=== PATIENT | male | born 1970 | race Hispanic/Latino ===

== ENCOUNTER → 2019-02-15 | Outpatient (CLI) | payer OTHER ==
--- NOTE | 2019-02-15 09:48 | REP ---
Clinical: Groin pain. Technique: Axial noncontrast images from the lung bases to the pubic symphysis with coronal and sagittal re-formations. No prior examination is available for comparison. Findings: Lung bases are clear. Visualized heart and pericardium normal. Mild hepatomegaly and hepatosteatosis noted. Spleen, pancreas, gallbladder, bilateral adrenal glands and left kidney normal. Right kidney includes 1 mm and 2 mm nonobstructing calculi. Evaluation of the enteric system is unremarkable and without obstruction or acute inflammatory process. Few scattered sigmoid diverticula noted without acute diverticulitis. Evaluation of the pelvis demonstrates normal bladder and age appropriate prostate/seminal vesicles. There is evidence for prior right inguinal hernia repair without acute stranding or definite residual hernia. There is a small/moderate left inguinal hernia which contains mesenteric fat and stranding suggesting the possibility of acute inflammatory change and consistent with the patient's given symptoms. No ascites. No adenopathy. No free air. Abdominal aorta without aneurysm. Musculoskeletal structures demonstrate stable degenerative changes. Impression: 1. Small/moderate fat containing left inguinal hernia containing fat stranding suggesting the possibility of acute inflammatory change and consistent with the patient's given symptoms. Electronically Signed by Eh Dior MD 02/15/2019 09:39 A
== END ==
LOC: M RAD 09:01
PROVIDERS: ATTEND Physician Assistant Medical
DX: K40.90 Unilateral inguinal hernia, without obstruction or gangrene, not specified as recurrent (principal)

== ENCOUNTER → 2019-12-13 | Outpatient (CLI) | payer OTHER ==
--- NOTE | 2019-12-21 07:59 | REP ---
SCROTAL SONOGRAPHY HISTORY: Left testicular pain. COMPARISON STUDY: None. FINDINGS: High resolution bilateral scrotal sonography shows no evidence of intratesticular mass lesion on either side. Right testis measures 4.9 x 2.5 x 2.9 cm. Left testis measures 4.4 x 2.4 x 3.0 cm. Testicular Doppler flow is present bilaterally and felt to be normal. Resistive indices are 0.51 on the right and 0.54 on the left by Doppler. There is a 2.3 cm cyst in the head of the epididymis on the left and a 0.7 cm cyst is seen in the epididymis on the right. There is a left-sided varicocele noted particularly with Valsalva. No significant hydrocele. No evidence of hernia. IMPRESSION: Small left-sided varicocele visible with Valsalva. Bilateral epididymal cysts, largest on the left 2.3 cm. Otherwise negative scrotal sonography. MTDD
== END ==
LOC: M RAD 07:22
PROVIDERS: ATTEND Physician Assistant Medical
DX: N50.812 Left testicular pain (principal); N50.3 Cyst of epididymis; I86.1 Scrotal varices

== ENCOUNTER → 2021-04-30 | Outpatient (CLI) | payer OTHER | LOC: M RAD 07:05 | PROVIDERS: ATTEND Nurse Practitioner Primary Care | DX: K76.0 Fatty (change of) liver, not elsewhere classified (principal) ==

== ENCOUNTER → 2022-05-02 | Outpatient (REF) | payer OTHER ==
[2022-05-02 11:49] LABS: BASO % 0.5 % (0.0-1.0); EOS # 0.2 10^3/uL (0.0-0.5); EOS % 2.3 % (0.0-3.0); HEMOGLOBIN 14.7 g/dl (13.5-17.5); LYMPH # 2.6 10^3/uL (1.5-5.0); LYMPH % 30.1 % (24.0-44.0); MEAN CORPUSCULAR HGB CONC 33.4 g/dl (32.0-36.5); MEAN CORPUSCULAR VOLUME 89.8 fl (80.0-96.0); MONO # 0.6 10^3/uL (0.0-0.8); MONO % 7.2 % (2.0-8.0); NEUTROPHILS # 5.2 10^3/uL (1.5-8.5); NEUTROPHILS % 59.4 % (36.0-66.0); PLATELET COUNT, AUTOMATED 195 10^3/uL (150-450); WHITE BLOOD COUNT 8.8 10^3/uL (4.0-10.0)
[2022-05-02 12:09] LABS: HEMOGLOBIN A1c 7.8 % (4.0-6.0)
[2022-05-02 12:16] LABS: CREATININE, URINE 183.9 MG/DL
[2022-05-02 12:19] LABS: ALBUMIN 3.8 G/DL (3.2-5.2); ALKALINE PHOSPHATASE 131 U/L (46-116); ALT/SGPT 55 U/L (7.0-40); AST/SGOT 27 U/L (<34); BILIRUBIN,TOTAL 0.4 MG/DL (0.3-1.2); BLOOD UREA NITROGEN 21 MG/DL (9-23); CALCIUM LEVEL 8.6 MG/DL (8.5-10.1); CARBON DIOXIDE LEVEL 29 MMOL/L (20-31); CHLORIDE LEVEL 106 MMOL/L (98-107); CHOLESTEROL LEVEL 155 MG/DL (<200); CHOLESTEROL RISK RATIO 5.03 (<5); CREATININE FOR GFR 0.88 MG/DL (0.70-1.30); FOLATE 20.2 NG/ML (>5.4); FREE T4 1.09 NG/DL (0.89-1.76); GLOMERULAR FILTRATION RATE > 60.0 (>56); GLUCOSE, FASTING 175 MG/DL (60-100); HDL CHOLESTEROL 30.8 MG/DL (>40); LDL CHOLESTEROL 68.4 MG/DL (<100); NON-HDL-C 124 MG/DL; POTASSIUM SERUM 4.2 MMOL/L (3.5-5.1); SODIUM LEVEL 141 MMOL/L (136-145); THYROID STIMULATING HORMONE 4.825 uIU/ML (0.55-4.78); TOTAL PROTEIN 6.8 G/DL (5.7-8.2); TRIGLYCERIDES LEVEL 279 MG/DL (<150)
[2022-05-02 12:20] LABS: TOTAL 25(OH) VITAMIN D 15.3 NG/ML (20.0-100.0); VITAMIN B12 LEVEL 382 PG/ML (211-911)
== END ==
LOC: M SFHCCLAY 07:28
PROVIDERS: ATTEND Physician Assistant
DX: Z00.00 Encounter for general adult medical examination without abnormal findings (principal); R40.0 Somnolence; E66.9 Obesity, unspecified

== ENCOUNTER → 2023-09-24 | Outpatient (REF) | payer OTHER ==
[2023-09-24 19:02] LABS: BASO % 0.5 % (0.0-1.0); EOS # 0.2 10^3/uL (0.0-0.5); HEMATOCRIT 44.9 % (42.0-52.0); HEMOGLOBIN 15.3 g/dl (13.5-17.5); LYMPH # 2.5 10^3/uL (1.5-5.0); LYMPH % 33.6 % (24.0-44.0); MEAN CORPUSCULAR HGB CONC 34.1 g/dl (32.0-36.5); MONO # 0.4 10^3/uL (0.0-0.8); MONO % 5.7 % (2.0-8.0); NEUTROPHILS # 4.3 10^3/uL (1.5-8.5); NEUTROPHILS % 57.8 % (36.0-66.0); PLATELET COUNT, AUTOMATED 183 10^3/uL (150-450); WHITE BLOOD COUNT 7.4 10^3/uL (4.0-10.0)
[2023-09-24 19:19] LABS: HEMOGLOBIN A1c 11.3 % (4.0-6.0)
[2023-09-24 19:26] LABS: PSA SCREENING 0.72 NG/ML (< 4.00)
[2023-09-24 19:27] LABS: CREATININE, URINE 134.7 MG/DL
[2023-09-24 19:28] LABS: MAU/CREAT RATIO 26.7 MCG/MG (0.0-30.0)
[2023-09-24 19:31] LABS: ALBUMIN 3.8 G/DL (3.2-5.2); ALKALINE PHOSPHATASE 126 U/L (46-116); ALT/SGPT 55 U/L (7.0-40); AST/SGOT 25 U/L (<34); BILIRUBIN,TOTAL 0.9 MG/DL (0.3-1.2); BLOOD UREA NITROGEN 16 MG/DL (9-23); CALCIUM LEVEL 8.9 MG/DL (8.5-10.1); CARBON DIOXIDE LEVEL 26 MMOL/L (20-31); CHLORIDE LEVEL 105 MMOL/L (98-107); CREATININE FOR GFR 0.71 MG/DL (0.70-1.30); GLOMERULAR FILTRATION RATE > 60.0 (>56); GLUCOSE, FASTING 282 MG/DL (60-100); POTASSIUM SERUM 4.3 MMOL/L (3.5-5.1); SODIUM LEVEL 138 MMOL/L (136-145); TOTAL PROTEIN 6.9 G/DL (5.7-8.2)
[2023-09-24 19:32] LABS: TOTAL 25(OH) VITAMIN D 21.8 NG/ML (20.0-100.0)
[2023-09-24 19:33] LABS: FREE T4 1.13 NG/DL (0.89-1.76)
== END ==
LOC: M SFHCCAPE 09:21
PROVIDERS: ATTEND Physician Assistant Medical
DX: E11.69 Type 2 diabetes mellitus with other specified complication (principal); E03.9 Hypothyroidism, unspecified; R74.8 Abnormal levels of other serum enzymes; Z12.5 Encounter for screening for malignant neoplasm of prostate; F41.8 Other specified anxiety disorders; E55.9 Vitamin D deficiency, unspecified

== ENCOUNTER → 2024-01-05 | Outpatient (REF) | payer OTHER ==
[2024-01-05 19:39] LABS: HEMOGLOBIN A1c 10.7 % (4.0-6.0)
[2024-01-05 19:57] LABS: TOTAL IRON BINDING CAPACITY 249 UG/DL (250-425)
[2024-01-05 20:00] LABS: ALBUMIN 3.5 G/DL (3.2-5.2); ALKALINE PHOSPHATASE 110 U/L (46-116); ALT/SGPT 47 U/L (7.0-40); AST/SGOT 28 U/L (<34); BILIRUBIN,TOTAL 0.5 MG/DL (0.3-1.2); BLOOD UREA NITROGEN 15 MG/DL (9-23); CALCIUM LEVEL 8.5 MG/DL (8.5-10.1); CARBON DIOXIDE LEVEL 28 MMOL/L (20-31); CHLORIDE LEVEL 109 MMOL/L (98-107); CHOLESTEROL LEVEL 123 MG/DL (<200); CHOLESTEROL RISK RATIO 4.48 (<5); CREATININE FOR GFR 0.77 MG/DL (0.70-1.30); GLOMERULAR FILTRATION RATE > 60.0 (>56); GLUCOSE, FASTING 173 MG/DL (60-100); HDL CHOLESTEROL 27.4 MG/DL (>40); IRON (FE) 83 UG/DL (65-175); NON-HDL-C 95.6 MG/DL; PERCENT SATURATION 33.3 % (19.7-50.0); POTASSIUM SERUM 4.4 MMOL/L (3.5-5.1); SODIUM LEVEL 142 MMOL/L (136-145); TOTAL PROTEIN 6.7 G/DL (5.7-8.2); TRIGLYCERIDES LEVEL 108 MG/DL (<150)
[2024-01-05 20:04] LABS: FERRITIN 160.9 NG/ML (10.5-307.3)
[2024-01-05 20:36] LABS: HEPATITIS C VIRUS ABY INDEX 0.02 INDEX (<0.8)
== END ==
LOC: M SFHCCAPE 07:27
PROVIDERS: ATTEND Physician Assistant Medical
DX: E11.69 Type 2 diabetes mellitus with other specified complication (principal); E78.2 Mixed hyperlipidemia; R74.8 Abnormal levels of other serum enzymes

== ENCOUNTER → 2024-05-26 | Outpatient (REF) | payer OTHER ==
[2024-05-26 19:00] LABS: ALBUMIN 3.7 G/DL (3.2-5.2); ALKALINE PHOSPHATASE 115 U/L (40-129); ALT/SGPT 41 U/L (7.0-40); AST/SGOT 19 U/L (<34); BILIRUBIN,TOTAL 0.4 MG/DL (0.3-1.2); BLOOD UREA NITROGEN 16 MG/DL (9-23); CALCIUM LEVEL 8.7 MG/DL (8.5-10.1); CARBON DIOXIDE LEVEL 27 MMOL/L (20-31); CHLORIDE LEVEL 109 MMOL/L (98-107); CREATININE FOR GFR 0.76 MG/DL (0.70-1.30); GLOMERULAR FILTRATION RATE > 60.0 (>56); GLUCOSE, FASTING 138 MG/DL (60-100); SODIUM LEVEL 142 MMOL/L (136-145)
[2024-05-26 19:01] LABS: FREE T4 1.09 NG/DL (0.89-1.76); THYROID STIMULATING HORMONE 4.969 uIU/ML (0.55-4.78)
[2024-05-26 19:32] LABS: HEMOGLOBIN A1c 6.4 % (4.0-6.0)
== END ==
LOC: M SFHCCAPE 07:37
PROVIDERS: ATTEND Physician Assistant Medical
DX: E11.69 Type 2 diabetes mellitus with other specified complication (principal); R79.89 Other specified abnormal findings of blood chemistry

== ENCOUNTER → 2025-02-07 | Outpatient (REF) | payer OTHER ==
[2025-02-07 18:58] LABS: ALT/SGPT 33 U/L (7.0-40); AST/SGOT 25 U/L (<34); CALCIUM LEVEL 8.8 MG/DL (8.5-10.1); CARBON DIOXIDE LEVEL 26 MMOL/L (20-31); CHLORIDE LEVEL 106 MMOL/L (98-107); CHOLESTEROL LEVEL 165 MG/DL (<200); CHOLESTEROL RISK RATIO 4.59 (<5); CREATININE FOR GFR 0.82 MG/DL (0.70-1.30); GLOMERULAR FILTRATION RATE > 90.0 (>56); LDL CHOLESTEROL 92.9 MG/DL (<100); NON-HDL-C 129.1 MG/DL; POTASSIUM SERUM 4.4 MMOL/L (3.5-5.1); PSA SCREENING 0.81 NG/ML (< 4.00); SODIUM LEVEL 143 MMOL/L (136-145); TRIGLYCERIDES LEVEL 181 MG/DL (<150)
[2025-02-07 19:01] LABS: FREE T4 1.28 NG/DL (0.89-1.76)
[2025-02-07 19:39] LABS: ESTIMATED AVERAGE GLUCOSE 131.0 MG/DL (60-110)
== END ==
LOC: M SFHCCAPE 07:49
PROVIDERS: ATTEND Physician Assistant Medical
DX: E11.69 Type 2 diabetes mellitus with other specified complication (principal); E03.9 Hypothyroidism, unspecified; Z12.5 Encounter for screening for malignant neoplasm of prostate
CPT/HCPCS: 36415; 80053; 80061; 83036; 84439; 84443; G0103